=== PATIENT | male | born 1995 | race Caucasian/White ===

== ENCOUNTER 2017-06-14 04:45 | Emergency (ER) | payer SELFPAY ==
[2017-06-14 05:02] VITALS: BP 100/57
--- NOTE | 2017-06-14 05:03 | ED Physician Documentation ---
General Adult - HISTORIAN Historian: patient - HPI Stated Complaint: dental pain Chief Complaint: General Adult Onset: days ago (1) Timing: still present Severity: moderate Further Comments: yes (Pt is a 22 yo male with dental pain in the L lower jaw x 1 day. Pain is keeping pt up at night. No fever.) - ROS CONST: no problems EYES/ENT: other (dental pain) CVS/RESP: none GI/: none MS/SKIN/LYMPH: none - PAST HX Past History: other (tonsil and adenoid removal) Allergies/Adverse Reactions: Allergies Allergy/AdvReac Type Severity Reaction Status Date / Time No Known Allergies Allergy Verified 06/14/17 04:56 Home Medications: Ambulatory Orders Medication Instructions Recorded NK [NK] 06/14/17 - SOCIAL HX Smoking History: chew - FAMILY HX Family History: No - REVIEWED ASSESSMENTS Nursing Assessment Reviewed: Yes Vitals Reviewed: Yes Progress - Progress Progress: Rx Keflex 500 mg tid x 10 days. Rx Dix (5/325) 1-2 po q 4-6 h prn # 15. General Adult Physical Exam - PHYSICAL EXAM GENERAL APPEARANCE: moderate distress EENT: eye inspection normal, pharynx normal, other (dental tenderness, caries, L lower molar) BACK: normal inspection SKIN: warm/dry, normal color EXTREMITIES: non-tender, normal range of motion, no evidence of injury NEURO: oriented X3, motor nml, sensation nml Discharge Clincal Impression: Pain, dental Condition: Good Disposition: 01 HOME, SELF-CARE Decision to Admit: NO Decision Time: 05:04
[2017-06-14] MEDS: HYDROcodone /APAP 5/325 1 EACH TABLET PO ONE (05:10)
[2017-06-14] MEDS: CEPHALEXIN 250 MG CAPSULE PO ONE (05:10)
== END 2017-06-14 05:15 | disposition home or self-care (01) ==
LOC: ED 04:45
DX: K08.89 Other specified disorders of teeth and supporting structures (principal)
CPT/HCPCS: 99282; A9270-GY

== ENCOUNTER 2017-08-22 07:45 | Emergency (ER) | payer SELFPAY ==
--- NOTE | 2017-08-22 08:03 | ED Physician Documentation ---
General Adult - HISTORIAN Historian: patient - HPI Stated Complaint: "Poison Priya" Chief Complaint: General Adult Onset: days ago Timing: still present Severity: moderate Further Comments: yes (Pt is a 22 yo male with a rash that he believes is poison priya. 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.) - ROS CONST: no problems EYES/ENT: none CVS/RESP: none GI/: none MS/SKIN/LYMPH: rash - PAST HX Past History: other (tonsils & adenoids, ortho surg) Allergies/Adverse Reactions: Allergies Allergy/AdvReac Type Severity Reaction Status Date / Time No Known Allergies Allergy Verified 08/22/17 07:54 Home Medications: Ambulatory Orders Medication Instructions Recorded NK [NK] 06/14/17 - SOCIAL HX Smoking History: chew - FAMILY HX Family History: No - VITAL SIGNS Vital Signs: Vital Signs Temp Pulse Resp BP Pulse Ox 98 F 79 18 130/86 98 08/22/17 07:45 08/22/17 07:45 08/22/17 07:45 08/22/17 07:45 08/22/17 07:45 - REVIEWED ASSESSMENTS Nursing Assessment Reviewed: Yes Vitals Reviewed: Yes Progress - Progress Progress: Solu-medrol 125 mg IM in ER. Rx Prednisone 10 mg. Take 6 tablets at one time each day for 2 days; then take 5 tablets once daily for 2 days; then take 4 tablets once daily for 2 days; then take 3 tablets once daily for 2 days; then take 2 tablets once daily for 2 days then take 1 tablet once daily for 2 days; then stop. Start regimen on 08/23. May take [id number] Benadryl and Zantac (or Pepcid). Use as directed. General Adult Physical Exam - PHYSICAL EXAM GENERAL APPEARANCE: mild distress EENT: pharynx normal NECK: normal inspection, supple RESPIRATORY: no resp distress, chest non-tender, breath sounds normal CVS: reg rate & rhythm, heart sounds normal BACK: normal inspection SKIN: other (rash c/w poison priya on face, chest, arms) EXTREMITIES: non-tender, normal range of motion, no evidence of injury NEURO: oriented X3, motor nml, sensation nml Discharge Clincal Impression: poison priya Referrals: Primary Doctor,No [Primary Care Provider] - Condition: Good Disposition: 01 HOME, SELF-CARE Decision to Admit: NO Decision Time: 08:27
[2017-08-22] MEDS ORDERED: methylPREDNISolone SOD SUCC 125 MG/2 ML VIAL IM ONE (08:09)
[2017-08-22] MEDS ORDERED: methylPREDNISolone SOD SUCC 125 MG/2 ML VIAL ONE (08:10)
[2017-08-22 08:28] VITALS: BP 128/68
== END 2017-08-22 08:25 | disposition home or self-care (01) ==
LOC: ED 07:45
DX: L23.7 Allergic contact dermatitis due to plants, except food (principal)
CPT/HCPCS: 96372; 99283; J2930

== ENCOUNTER 2018-05-19 20:13 | Emergency (ER) | payer OTHER ==
[2018-05-19 20:32] VITALS: BP 148/94
--- NOTE | 2018-05-19 20:56 | Diagnostic Imaging Report ---
HUDSON ZEPEDA (UNIVERSITY LECTURER) - ER [facility] [address] [facility].[address] [id number] Report Submission Date: May 19, 2018 8:53:19 PM TRACE CLERK Patient Study Name: WARD HERRMANN Date: May 19, 2018 8:23:53 PM TRACE CLERK Modality Type: DX Gender: M Description: UPPER EXTREMITY : 93 Institution: [facility] Physician: HUDSON ZEPEDA (JAIMIE) - ER 3 views right hand Clinical history: Right hand pain Findings: No acute fracture or dislocation identified. Alignment is normal. Impression: Negative Electronically signed on May 19, 2018 8:53:19 PM TRACE CLERK by: Slim KAPLAN
--- NOTE | 2018-05-19 20:57 | ED Physician Documentation ---
General Adult - HISTORIAN Historian: patient - HPI Stated Complaint: finger pain Chief Complaint: General Adult Further Comments: yes (23 year old male patient presents with right middle finger pain x 2 weeks. 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.) - ROS CONST: no problems EYES/ENT: none CVS/RESP: none GI/: none MS/SKIN/LYMPH: none NEURO/PSYCH: denies: headache - PAST HX Past History: none Other History: none, pancreatitis Allergies/Adverse Reactions: Allergies Allergy/AdvReac Type Severity Reaction Status Date / Time shellfish derived Allergy Severe Anaphylaxis Verified 05/19/18 20:31 Home Medications: Ambulatory Orders Medication Instructions Recorded NK 06/14/17 - SOCIAL HX Smoking History: cigarettes - FAMILY HX Family History: No - VITAL SIGNS Vital Signs: Vital Signs Temp Pulse Resp BP Pulse Ox 98.0 F 97 H 18 148/94 97 05/19/18 20:23 05/19/18 20:23 05/19/18 20:23 05/19/18 20:23 05/19/18 20:23 - REVIEWED ASSESSMENTS Nursing Assessment Reviewed: Yes Vitals Reviewed: Yes ED Results Lab/Radiology - Radiology Radiology Impressions: 3 views right hand Clinical history: Right hand pain Findings: No acute fracture or dislocation identified. Alignment is normal. Impression: Negative Electronically signed on May 19, 2018 8:53:19 PM PUBLIC HEALTH OFFICER by: Slim Talamantes - Orders Orders: ED Orders Category Date Time Status HAND 3 VIEWS OR MORE [RAD] Stat Exams 05/19/18 Ordered General Adult Physical Exam - PHYSICAL EXAM GENERAL APPEARANCE: mild distress EENT: eye inspection normal, LEVI RESPIRATORY: no resp distress CVS: reg rate & rhythm EXTREMITIES: normal range of motion, no evidence of injury, no edema, other (right middle finger; navarro aspect with .5cm palpable nodule; tender to palpation. Proximal to PIP joint.) NEURO: oriented X3, motor nml, sensation nml, mood/affect nml Discharge Clincal Impression: Right hand pain, Ganglion cyst of finger Referrals: Primary Doctor,No [Primary Care Provider] - 2 Days Additional Instructions: Follow up with orthopedics - hand surgeon. See attached Tylenol or ibuprofen as needed for discomfort You may use Tylenol every 4hour as needed for pain. Limit your dose to less than 4 G per day. Alternate with Ibuprofen 600-800mg three times a day with food as needed. Do not take for more than 5 days in a row. Condition: Stable Disposition: 01 HOME, SELF-CARE Decision to Admit: NO Decision Time: 20:56
== END 2018-05-19 21:07 | disposition home or self-care (01) ==
LOC: ED 20:13
DX: M79.641 Pain in right hand (principal); M67.48 Ganglion, other site
CPT/HCPCS: 73130; 99282; 99283